=== PATIENT | female | born 1985 | race African-American/Black ===

== ENCOUNTER 2022-04-27 16:00 | Emergency (ER) | payer OTHER | END 2022-04-27 17:50 | disposition home or self-care (01) | LOC: VM.ED 16:00 | DX: R07.89 Other chest pain (principal); M79.604 Pain in right leg; M54.9 Dorsalgia, unspecified; V49.50XA Passenger injured in collision with unspecified motor vehicles in traffic accident, initial encounter; Y92.410 Unspecified street and highway as the place of occurrence of the external cause | CPT/HCPCS: 71045; 99284 ==